=== PATIENT | male | born 1995 | race Caucasian/White ===

== ENCOUNTER 2018-07-06 19:38 | Emergency (ER) | payer BC ==
--- NOTE | 2018-07-06 20:11 | ED ---
General Adult HPI - General Chief complaint: Head Injury Stated complaint: Head injury Time Seen by Provider: 07/06/18 19:59 Source: patient, family, RN notes reviewed, old records reviewed Mode of arrival: ambulatory Limitations: no limitations - History of Present Illness Initial comments: 23-year-old male presenting status post head injury. Patient was lifting his dog, fell falling into the corner of the wall striking just above his right eye. Patient denies focal numbness or weakness. Denies loss consciousness. Not on blood thinners. Patient has headache both in the setting of injury and occipital headache since the fall. He's had 2 episodes of vomiting over the past one hour. Injury occurred 90 minutes prior to evaluation. No other extremity injuries, no neck pain. - Related Data Home Medications Medication Instructions Recorded Confirmed Cyanocobalamin (Vitamin B-12) 1,000 mcg PO DAILY 07/06/18 07/06/18 [Vitamin B-12] Allergies Allergy/AdvReac Type Severity Reaction Status Date / Time meclizine [From Antivert] AdvReac LEG Verified 07/06/18 20:26 NUMBNESS Review of Systems ROS Statement: Those systems with pertinent positive or pertinent negative responses have been documented in the HPI. ROS Other: All systems not noted in ROS Statement are negative. Past Medical History Past Medical History: No Reported History Additional Past Medical History / Comment(s): vitamin B deficit History of Any Multi-Drug Resistant Organisms: None Reported Past Surgical History: No Surgical Hx Reported Past Psychological History: No Psychological Hx Reported Smoking Status: Never smoker Past Alcohol Use History: None Reported Past Drug Use History: None Reported General Exam Limitations: no limitations General appearance: alert, in no apparent distress Head exam: Present: normocephalic. Absent: atraumatic (2 cm hematoma above the right eye.) Eye exam: Present: normal appearance, PERRL, EOMI ENT exam: Present: normal exam Neck exam: Present: normal inspection, full ROM. Absent: tenderness Respiratory exam: Present: normal lung sounds bilaterally. Absent: respiratory distress, wheezes Cardiovascular Exam: Present: regular rate, normal rhythm GI/Abdominal exam: Present: soft. Absent: distended, tenderness Extremities exam: Present: normal inspection, full ROM Back exam: Present: normal inspection. Absent: full ROM, tenderness Neurological exam: Present: alert Course Vital Signs 07/06/18 19:50 Temperature 98.9 F Pulse Rate 94 Respiratory 16 Rate Blood Pressure 158/80 O2 Sat by Pulse 100 Oximetry Medical Decision Making - Medical Decision Making 23-year-old male presenting with head injury and tooth episodes of vomiting. Head CT is obtained, negative for intracranial hemorrhage. Patient will follow- up with primary care physician. Disposition Clinical Impression: Concussion without loss of consciousness Disposition: HOME SELF-CARE Condition: Good Instructions: Concussion (ED) Is patient prescribed a controlled substance at d/c from ED?: No Referrals: Nonstaff,Physician [Primary Care Provider] - 1-2 days Rosemary Delgadillo MD [STAFF PHYSICIAN] - 1-2 days Time of Disposition: 20:37
--- NOTE | 2018-07-06 20:33 | CT ---
EXAMINATION TYPE: CT brain wo con DATE OF EXAM: 07/06/2018 COMPARISON: None HISTORY: Fell and hit head. Vomiting. CT DLP: 1123.4 mGycm. Automated Exposure Control for Dose Reduction was Utilized. TECHNIQUE: CT scan of the head is performed without contrast. FINDINGS: Ventricles and sulci appear normal. There is no mass effect nor midline shift. There is no sign of intracranial hemorrhage. The calvarium is intact. IMPRESSION: Negative CT scan of the brain.
[2018-07-06 21:20] VITALS: BP 130/74; PULSE 90; RESP 18; TEMP 98
== END 2018-07-06 21:20 | disposition home or self-care (01) ==
LOC: EC 19:38
DX: S06.0X0A Concussion without loss of consciousness, initial encounter (principal); Z79.899 Other long term (current) drug therapy; Z88.8 Allergy status to other drugs, medicaments and biological substances; W01.198A Fall on same level from slipping, tripping and stumbling with subsequent striking against other object, initial encounter; Y92.009 Unspecified place in unspecified non-institutional (private) residence as the place of occurrence of the external cause; Y93.89 Activity, other specified
CPT/HCPCS: 70450; 99284